=== PATIENT | male | born 1955 | race Caucasian/White ===

== ENCOUNTER 2021-10-21 17:13 | Emergency (ER) | payer MEDICARE ==
[~2021-10-21] VITALS: Ht 185.4 cm; Wt 99.8 kg
[2021-10-21] MEDS ORDERED: IV NORMAL SALINE 1000 ML BAG IV ONE (17:30)
[2021-10-21 17:45] LABS: HEMATOCRIT 43.9 % (36.7-47.1); MEAN CORPUSCULAR VOLUME 93.5 fL (73.0-96.2); PLATELET COUNT (AUTO) 276 K/uL (152-348)
[2021-10-21 17:52] LABS: CARBON DIOXIDE 24 mmol/L (21-32); CHLORIDE 104 mmol/L (98-107); CREATININE 1.2 mg/dL (0.6-1.3); GLUCOSE 125 mg/dL (74-106); UREA NITROGEN, BLOOD 20 mg/dL (7-18)
--- NOTE | 2021-10-21 18:56 | NUR ---
Patient discharged to home in stable condition. Written and verbal after care instructions given. Patient verbalizes understanding of instructions. Stressed follow up or return to ER for worsening s/s.PTWALKS IN STEADY GAIT. PT'S DAUGHTER AT BEDSIDE. PT NOTDRIVING. PT SAYS FEELS BETTER.
[2021-10-21 18:57] VITALS: BP 124/89
== END 2021-10-21 19:13 | disposition home or self-care (01) ==
LOC: ER 17:16 → EDBD 17:16 → ER 19:13
DX: R55 Syncope and collapse (principal); Z98.1 Arthrodesis status
CPT/HCPCS: 36415; 71045; 80048; 84484; 85025; 93005; 96360; 99285; J7040; A4663